=== PATIENT | male | born 1975 | race Caucasian/White ===

== ENCOUNTER 2016-06-09 17:29 | Emergency (ER) | payer SELFPAY ==
[~2016-06-09] VITALS: Ht 162.6 cm; Wt 77.0 kg
[2016-06-09] MEDS ORDERED: MAGNESIUM SULFATE 2 GM, MULTIVITAMINS 10 ML, THIAMINE 100 MG, FOLIC ACID 1 MG in SOD CH... IV STA (17:48)
[2016-06-09] MEDS ORDERED: FAMOTIDINE 20 MG INJ IV STA (17:48)
[2016-06-09] MEDS ORDERED: ONDANSETRON 4 MG INJ IV STA (17:48)
[2016-06-09 17:49] VITALS: BP 166/87; PULSE 116; RESP 18; TEMP 97.6; Ht 162.6 cm; Wt 77.0 kg
[2016-06-09] MEDS ORDERED: LORAZEPAM 2 MG INJ IV ONE (18:00)
[2016-06-09] MEDS ORDERED: HALOPERIDOL 5 MG INJ IV ONE (18:00)
--- NOTE | 2016-06-09 18:51 | ERA ---
ER Documentation Chief Complaint Date/Time DATE: 06/09/16 TIME: 18:47 Chief Complaint HPI Patient is a 40-year-old male who is brought in by the paramedics secondary to alcohol intoxication. He tells me that he was "falling down." He also complains of chronic bleeding from the rectum. Patient then tells me not to touch him. He also refuses to answer any further questions. The only thing he keeps repeating is that he is "an Pakistani." He states he is "more Pakistani than I am." ROS All systems reviewed and are negative except as per history of present illness. PMhx/Soc Medical and Surgical Hx: Unable to obtain Hx Alcohol Use: Yes Hx Substance Use: No Hx Tobacco Use: No Smoking Status: Never smoker Physical Exam Vitals Vital Signs Date Time Temp Pulse Resp B/P Pulse Ox O2 Delivery O2 Flow Rate FiO2 06/09/16 17:49 97.6 116 18 166/87 94 Room Air 06/09/16 17:49 97.6 116 18 166/87 94 Physical Exam Const: [] Well-developed well-nourished male on the bed obviously intoxicated. He smells strongly of alcohol. Head: Atraumatic normocephalic Eyes: Normal Conjunctiva Resp: Clear to auscultation bilaterally Cardio: Regular rate and rhythm, no murmurs Abd: Soft, non tender, non distended. Normal bowel sounds Skin: No petechiae or rashes Back: No midline or flank tenderness Ext: No cyanosis, or edema Neur: Awake and alert, moves all extremities equally, nonfocal Psych: Agitated and aggressive Results 24 hrs Current Medications Medications (Trade) Dose Ordered Sig/Deacon Route PRN Reason Start Time Stop Time Status Last Admin Dose Admin Ondansetron HCl (Zofran Inj) 4 mg ONCE STAT IV 06/09/16 17:48 06/09/16 17:52 DC Famotidine 20 mg 20 mg ONCE STAT IV 06/09/16 17:48 06/09/16 17:52 DC Magnesium Sulfate/ Multivitamins/ Thiamine HCl/ Folic Acid/Sodium Chloride (Magnesium Sulfate/Mvi Adult/ Vitamin B1/Folic Acid/NS) 1,015.2 ml @ 500 mls/ hr Q2H2M STAT IV 06/09/16 17:48 06/09/16 19:49 Haloperidol (Haldol) 5 mg ONCE ONCE IV 06/09/16 18:00 06/09/16 18:01 DC 06/09/16 18:15 Lorazepam (Ativan) 2 mg ONCE ONCE IV 06/09/16 18:00 06/09/16 18:01 DC 06/09/16 18:15 Procedures/MDM Differential includes alcohol intoxication, behavioral disorder, alcoholism, GI bleed by history Unfortunately it appears the patient has eloped from the emergency department at this time. His blood work was unable to be drawn and a CT scan was unable to be performed prior to his elopement. If he is brought back to the emergency department we will proceed with his evaluation. Departure Diagnosis: Primary Impression: Alcoholic intoxication Qualified Code: F10.129 - Alcoholic intoxication, with unspecified complication Additional Impressions: Disruptive behavior disorder Gastrointestinal bleeding Qualified Code: K92.2 - Gastrointestinal hemorrhage, unspecified gastrointestinal hemorrhage type Condition: Good Patient Instructions: Alcohol Intoxication JAME LLANES Jun 09, 2016 18:50
== END 2016-06-09 18:45 | disposition left against medical advice (07) ==
LOC: E/R 17:29
DX: F10.129 Alcohol abuse with intoxication, unspecified (principal); F91.9 Conduct disorder, unspecified; K92.2 Gastrointestinal hemorrhage, unspecified; R40.2142 Coma scale, eyes open, spontaneous, at arrival to emergency department; R40.2232 Coma scale, best verbal response, inappropriate words, at arrival to emergency department; R40.2362 Coma scale, best motor response, obeys commands, at arrival to emergency department
CPT/HCPCS: 96374; 96375; 99284; J1630; J2060; J3411; J3475; J7030